=== PATIENT | female | born 1995 ===

== ENCOUNTER 2020-10-14 06:57 | Day surgery (SDC) | payer OTHER ==
[~2020-10-14 06:57] MED LIST: BACTERIOSTATIC SODIUM CHLORIDE 0.9% 30 ML VIAL INFILTRATI ONE
--- NOTE | 2020-10-14 07:28 | Anesthesia Consultation ---
Anesthesia Consult and Med Hx Date of service: 10/14/20 - Airway Anesthetic Teeth Evaluation: Good ROM Head & Neck: Adequate Mental/Hyoid Distance: Adequate Mallampati Class: Class II Intubation Access Assessment: Probably Good - Pre-Operative Health Status ASA Pre-Surgery Classification: ASA2 Proposed Anesthetic Plan: General - Central Nervous System Hx Psychiatric Problems: Yes (bipolar, ADHD, ODD, personality disorder) - Endocrine Hx Renal Disease: Yes (gross hematuria)
[2020-10-14] MEDS ORDERED: LACTATED RINGERS 1,000 ML IV SCH (07:30)
--- NOTE | 2020-10-14 07:31 | Anesthesia Day of Surgery ---
Anesthesia Day of Surgery - Day of Surgery Patient Examined: Yes Patient H&P Reviewed: Yes Patient is NPO: Yes
[2020-10-14] MEDS ORDERED: FAMOTIDINE 20 MG/2 ML INJ IV NR (08:00)
[2020-10-14] MEDS ORDERED: MIDAZOLAM 2 MG/2 ML INJ IV NR (08:00)
[2020-10-14] MEDS ORDERED: GENTAMICIN/NS 80 MG/100 ML 100 ML IV NR (08:30)
[2020-10-14] MEDS ORDERED: HYDROmorphone 1 MG/1 ML INJ ONE (09:01)
[2020-10-14] MEDS ORDERED: propofoL 200 MG/20 ML VIAL IV ONE (09:02)
[2020-10-14] MEDS ORDERED: LIDOCAINE MPF (2%) 20 MG/1 ML VIAL 5 ML ONE (09:06)
[2020-10-14] MEDS ORDERED: IOHEXOL 300 MG/ML 50ML IV ONE (09:49)
[2020-10-14] MEDS ORDERED: PHENYLEPHRINE/NS 1,000 MCG/10 ML SYRINGE (OR USE) IV ONE (09:50)
[2020-10-14] MEDS ORDERED: KETOROLAC 30 MG/1 ML INJ ONE (09:52)
[2020-10-14] MEDS ORDERED: ONDANSETRON 4 MG/2 ML INJ ONE (09:53)
--- NOTE | 2020-10-14 10:04 | Short Stay Summary ---
Short Stay Documentation Date of service: 10/14/20 - History H&P: obtained from office - Allergies and Medications Current Medications: Allergies guanfacine [From Tenex] Adverse Reaction (Verified 10/14/20 08:13) Itching Penicillins Adverse Reaction (Verified 10/14/20 08:13) Unknown quetiapine [From Seroquel] Adverse Reaction (Verified 10/14/20 08:13) Unknown CONTRAST DYE Adverse Reaction (Uncoded 10/14/20 08:13) Hives Home Medications Medication Instructions Recorded Confirmed Last Taken Type Multivitamin 1 tab PO DAILY 10/14/20 10/14/20 10/13/20 History Active Medications Famotidine (Famotidine 20 Mg/2 Ml Inj) 20 mg IV PREOP NR Stop: 10/14/20 20:00 Last Admin: 10/14/20 08:00 Dose: 20 mg Documented by: Gentamicin Sulfate/Sodium Chloride (Gentamicin/Ns 80 Mg/100 Ml) 100 mls @ 200 mls/hr IV ONCE NR; Protocol Stop: 10/14/20 14:00 Lactated Ringer's (Lactated Ringers) 1,000 mls @ 100 mls/hr IV DIRECT CRISTIANO Stop: 10/14/20 23:00 Last Admin: 10/14/20 08:00 Dose: 100 mls/hr Documented by: Midazolam HCl (Midazolam 2 Mg/2 Ml Inj) 2 mg IV PREOP NR Stop: 10/14/20 23:59 Last Admin: 10/14/20 08:25 Dose: 2 mg Documented by: - Brief post op/procedure progress note Date of procedure: 10/14/20 Pre-op diagnosis: hematuria, hx of urinary retention Post-op diagnosis: same Procedure: cysto, rpg, hydrodistention (800cc) Anesthesia: GETA Surgeon: SHANA ISRAEL Estimated blood loss: none Condition: stable - Hospital course Hospital course: macrobid & motrin on chart findings: normal bladder - bladder capacity 800cc (mild irritation---trigonitis)-- can be cause of blood in urine --- reduce caffeine, alcohol, spicy foods hx of retention--- 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
--- NOTE | 2020-10-14 10:22 | Fluoroscopy Report ---
FL retrograde urography 4 images INDICATION: HEMATURIA. COMPARISON: No relevant prior imaging study available. FINDINGS: No ureteral filling defects are seen. Caliber of the ureters is normal. There is no hydronephrosis bilaterally. Calyces are sharp. On the postdrainage image, there is mild p ersistent radiotracer activity within the right renal collecting system. IMPRESSION: 1. No acute findings. Signer Name: Mir Stevens MD Signed: 10/14/2020 10:17 AM Workstation Name: [id number]
--- NOTE | 2020-10-14 10:54 | Operative Report ---
DATE OF SURGERY: 10/14/2020 PREOPERATIVE DIAGNOSES: Hematuria, history of urinary retention. POSTOPERATIVE DIAGNOSES: Hematuria, history of urinary retention. Normal exam. PROCEDURES: Cystoscopy, bilateral retrograde pyelograms, hydrodistention (800 mL bladder capacity). SURGEON: Joseph King MD ANESTHESIA: General. ESTIMATED BLOOD LOSS: Minimal. FLUIDS: Crystalloid. COMPLICATIONS: No complications. INDICATIONS: This patient is a 25-year-old female, presently incarcerated, who presents to the office with a history of recurrent urinary retention and hematuria. Significant family history, she had an aunt that had a kidney removed for unknown cause. She was told she had crystals in her urine as a kid. She has had 2 episodes of urinary retention, requiring a Riddle catheter placed in June and August. A CT of abdomen and pelvis at [facility] was normal except for small ovarian cyst. Due to that history of hematuria, crystals and urinary retention, she presents now for endoscopic evaluation. DESCRIPTION OF PROCEDURE: The patient was taken to the operative suite, placed in a supine position. After adequate general anesthesia, placed in the dorsal lithotomy position, prepped and draped in a sterile fashion. Pancystourethroscopy was performed with a 22-Kiswahili Storz cystoscope. No urethral abnormalities. Bladder displayed both ureteral orifices in normal position. No tumors or stones were noted. Bilateral retrograde pyelograms were obtained with an 8-Kiswahili Hoke catheter and 8 mL of contrast. No filling defects or obstruction. Hydrodistention was performed. Bladder capacity of 800 mL. No signs of interstitial cystitis. Bladder was drained. She was extubated and taken to the recovery room. She will go home on Macrobid and ibuprofen. Her findings were normal bladder and bladder capacity. She had some mild irritation called trigonitis which could be the cause of the blood in the urine. Would recommend reducing her caffeine, alcohol, spicy food consumption. 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 She also has a history of mental illness and has been on several drugs that could cause urinary retention. She can resume normal activity. If her retention returns, she would benefit from urodynamics for further evaluation. TID: [id number] RECEIPT: [id number] RAYMUNDO/LORIE MILLS
[2020-10-14 11:40] VITALS: BP 101/62
--- NOTE | 2020-10-14 15:50 | Post Anesthesia Evaluation ---
- Post Anesthesia Evaluation Patient Participated: Yes Airway Patent: Yes Stable Respiratory Function: Yes Nausea/Vomiting: No Temp > 96.8F: Yes Pain Manageable: Yes Adequeate Hydration: Yes Anesthesia Complications: No Block Receding Appropriately: Not Applicable Patient on Ventilator: No
== END 2020-10-14 11:05 | disposition home or self-care (01) ==
LOC: OR 06:57 → EEVIPCON 07:30 → OR 11:05
PROVIDERS: ATTEND Urology
DX: R31.29 Other microscopic hematuria (principal); R33.8 Other retention of urine; F41.9 Anxiety disorder, unspecified; F31.9 Bipolar disorder, unspecified; Z88.0 Allergy status to penicillin; Z88.8 Allergy status to other drugs, medicaments and biological substances; Z79.899 Other long term (current) drug therapy; Z87.440 Personal history of urinary (tract) infections
CPT/HCPCS: 52005; 74420; 81025; C1758; J1170; J1580; J1885; J2250; J2370; J2405; J2704; J7120; Q9967